=== PATIENT | female | born 1930 | race Caucasian/White ===

== ENCOUNTER 2017-10-22 09:14 | Outpatient (CLI) | payer MEDICARE, OTHER ==
[2017-10-22 17:48] LABS: BASOPHILS % (AUTO) 0.8 %; EOSINOPHILS # (AUTO) 0.1 10^3/uL (0.0-0.7); EOSINOPHILS % (AUTO) 1.6 %; HCT - HEMATOCRIT 33.4 % (37.0-47.0); HGB - HEMOGLOBIN 10.8 g/dL (12.0-16.0); LYMPHOCYTES % (AUTO) 20.4 %; MEAN CORPUSCULAR HEMOGLOBIN 30.9 pg (27.0-31.0); MEAN CORPUSCULAR HGB CONC 32.3 g/dL (32.0-36.0); MEAN CORPUSCULAR VOLUME 95.8 fL (81.0-99.0); MEAN PLATELET VOLUME 8.4 fL (7.9-10.8); MONOCYTES # (AUTO) 0.5 10^3/uL (0.0-1.0); MONOCYTES % (AUTO) 10.4 %; NEUTROPHILS # (AUTO) 3.4 10^3/uL (1.5-6.6); NEUTROPHILS % (AUTO) 66.8 %; NUCLEATED RED BLOOD CELLS AUTO 0.1 /100WBC; RED BLOOD COUNT 3.49 10^6/uL (4.20-5.40); RED CELL DISTRIBUTION WIDTH 12.7 % (12.0-15.0)
[2017-10-22 18:10] LABS: ALBUMIN/GLOBULIN RATIO 1.3 (1.0-2.2); BILIRUBIN,TOTAL 0.7 mg/dL (0.2-1.0); BUN - BLOOD UREA NITROGEN 27 mg/dL (6-20); CALCIUM 9.1 mg/dL (8.5-10.3); CARBON DIOXIDE - CO2 23 mmol/L (21-32); CHLORIDE 110 mmol/L (101-111); CHOL/HDL RATIO 3.4 (<4.4); CHOLESTEROL 186 mg/dL; CREATININE 1.3 mg/dL (0.4-1.0); GFR - MDRD 39 (>89); GLUCOSE 107 mg/dL (70-100); HDL CHOLESTEROL 54 mg/dL; LDL/HDL RATIO 1.8 (<4.4); POTASSIUM 5.2 mmol/L (3.5-5.0); SODIUM 139 mmol/L (135-145); TOTAL PROTEIN 7.4 g/dL (6.7-8.2); TRIGLYCERIDES 163 mg/dL; VLDL CHOLESTEROL 33 mg/dL
== END 2017-10-22 09:15 | disposition home or self-care (01) ==
LOC: LAB.F 09:14
PROVIDERS: ATTEND Physician Assistant Medical
DX: I10 Essential (primary) hypertension (principal); E78.5 Hyperlipidemia, unspecified
CPT/HCPCS: 36415; 80053; 80061; 85025

== ENCOUNTER 2018-01-26 14:09 | Outpatient (CLI) | payer MEDICARE, OTHER ==
[2018-01-26 17:43] LABS: ALBUMIN 4.2 g/dL (3.2-5.5); ALBUMIN/GLOBULIN RATIO 1.3 (1.0-2.2); BILIRUBIN,TOTAL 0.2 mg/dL (0.2-1.0); CREATININE 1.5 mg/dL (0.4-1.0); TOTAL PROTEIN 7.4 g/dL (6.7-8.2)
== END 2018-01-26 14:10 | disposition home or self-care (01) ==
LOC: LAB.F 14:09
PROVIDERS: ATTEND Physician Assistant Medical
DX: E87.5 Hyperkalemia (principal); N28.9 Disorder of kidney and ureter, unspecified
CPT/HCPCS: 36415; 80053

== ENCOUNTER 2018-03-31 10:47 | Outpatient (CLI) | payer MEDICARE, OTHER ==
[2018-03-31 17:51] LABS: ALBUMIN 4.5 g/dL (3.2-5.5); ALBUMIN/GLOBULIN RATIO 1.6 (1.0-2.2); BILIRUBIN,TOTAL 0.7 mg/dL (0.2-1.0); CALCIUM 8.8 mg/dL (8.5-10.3); CREATININE 1.4 mg/dL (0.4-1.0); TOTAL PROTEIN 7.4 g/dL (6.7-8.2)
== END 2018-03-31 10:48 | disposition home or self-care (01) ==
LOC: LAB.F 10:47
PROVIDERS: ATTEND Physician Assistant Medical
DX: N28.9 Disorder of kidney and ureter, unspecified (principal)
CPT/HCPCS: 36415; 80053

== ENCOUNTER 2018-04-05 10:34 | Outpatient (CLI) | payer MEDICARE, OTHER ==
[2018-04-05 18:00] LABS: ALBUMIN 4.1 g/dL (3.2-5.5); ALBUMIN/GLOBULIN RATIO 1.2 (1.0-2.2); BILIRUBIN,TOTAL 0.8 mg/dL (0.2-1.0); CALCIUM 8.9 mg/dL (8.5-10.3); CREATININE 1.3 mg/dL (0.4-1.0); TOTAL PROTEIN 7.6 g/dL (6.7-8.2)
== END 2018-04-05 10:35 | disposition home or self-care (01) ==
LOC: LAB.F 10:34
PROVIDERS: ATTEND Physician Assistant Medical
DX: E87.5 Hyperkalemia (principal)
CPT/HCPCS: 36415; 80053

== ENCOUNTER 2018-04-14 10:05 | Outpatient (CLI) | payer MEDICARE, OTHER ==
[2018-04-14 17:58] LABS: ALBUMIN 4.3 g/dL (3.2-5.5); ALBUMIN/GLOBULIN RATIO 1.4 (1.0-2.2); BILIRUBIN,TOTAL 0.7 mg/dL (0.2-1.0); CREATININE 1.3 mg/dL (0.4-1.0); TOTAL PROTEIN 7.3 g/dL (6.7-8.2)
[2018-04-14 18:04] LABS: CALCIUM 8.8 mg/dL (8.5-10.3)
== END 2018-04-14 10:06 | disposition home or self-care (01) ==
LOC: LAB.F 10:05
PROVIDERS: ATTEND Physician Assistant Medical
DX: Z86.39 Personal history of other endocrine, nutritional and metabolic disease (principal)
CPT/HCPCS: 36415; 80053

== ENCOUNTER 2018-11-15 15:00 | Outpatient (CLI) | payer MEDICARE, OTHER ==
[2018-11-15 18:55] LABS: ALBUMIN 4.1 g/dL (3.2-5.5); ALBUMIN/GLOBULIN RATIO 1.1 (1.0-2.2); BILIRUBIN,TOTAL 0.4 mg/dL (0.2-1.0); CALCIUM 8.6 mg/dL (8.5-10.3); CREATININE 1.4 mg/dL (0.4-1.0); TOTAL PROTEIN 7.7 g/dL (6.7-8.2)
== END 2018-11-15 15:01 | disposition home or self-care (01) ==
LOC: LAB.F 15:00
PROVIDERS: ATTEND Physician Assistant Medical
DX: N28.9 Disorder of kidney and ureter, unspecified (principal)
CPT/HCPCS: 36415; 80053

== ENCOUNTER 2019-04-20 08:00 | Outpatient (CLI) | payer MEDICARE, OTHER ==
[2019-04-20 10:16] LABS: BASOPHILS % (AUTO) 0.2 %; EOSINOPHILS # (AUTO) 0.1 10^3/uL (0.0-0.7); EOSINOPHILS % (AUTO) 1.1 %; LYMPHOCYTES # (AUTO) 1.5 10^3/uL (1.5-3.5); LYMPHOCYTES % (AUTO) 17.3 %; MEAN CORPUSCULAR HEMOGLOBIN 31.2 pg (27.0-31.0); MEAN CORPUSCULAR VOLUME 94.4 fL (81.0-99.0); MEAN PLATELET VOLUME 7.8 fL (7.9-10.8); MONOCYTES # (AUTO) 0.9 10^3/uL (0.0-1.0); MONOCYTES % (AUTO) 10.4 %; PLT - PLATELET COUNT 278 10^3/uL (130-450); RED BLOOD COUNT 3.52 10^6/uL (4.20-5.40); RED CELL DISTRIBUTION WIDTH 12.4 % (12.0-15.0); WHITE BLOOD COUNT 8.4 x10^3/uL (4.8-10.8)
[2019-04-20 10:24] LABS: ALBUMIN/GLOBULIN RATIO 1.3 (1.0-2.2); BILIRUBIN,TOTAL 0.7 mg/dL (0.2-1.0); CALCIUM 8.6 mg/dL (8.5-10.3); CREATININE 1.4 mg/dL (0.4-1.0); TOTAL PROTEIN 7.2 g/dL (6.7-8.2)
== END 2019-04-20 08:01 | disposition home or self-care (01) ==
LOC: LAB.F 08:00
PROVIDERS: ATTEND Physician Assistant Medical
DX: I10 Essential (primary) hypertension (principal)
CPT/HCPCS: 36415; 80053; 85025

== ENCOUNTER 2019-08-23 07:59 | Outpatient (CLI) | payer MEDICARE, OTHER ==
[2019-08-23 11:01] LABS: ALBUMIN 4.5 g/dL (3.2-5.5); ALBUMIN/GLOBULIN RATIO 1.4 (1.0-2.2); BILIRUBIN,TOTAL 0.6 mg/dL (0.2-1.0); CREATININE 1.4 mg/dL (0.4-1.0); TOTAL PROTEIN 7.8 g/dL (6.7-8.2)
== END 2019-08-23 08:00 | disposition home or self-care (01) ==
LOC: LAB.S 07:59
PROVIDERS: ATTEND Physician Assistant Medical
DX: N28.9 Disorder of kidney and ureter, unspecified (principal); Z86.39 Personal history of other endocrine, nutritional and metabolic disease
CPT/HCPCS: 36415; 80053

== ENCOUNTER 2019-10-05 07:58 | Outpatient (CLI) | payer MEDICARE, OTHER ==
[2019-10-05 16:18] LABS: ALBUMIN 4.5 g/dL (3.2-5.5); ALBUMIN/GLOBULIN RATIO 1.4 (1.0-2.2); BILIRUBIN,TOTAL 1.1 mg/dL (0.2-1.0); CREATININE 1.4 mg/dL (0.4-1.0); TOTAL PROTEIN 7.7 g/dL (6.7-8.2)
== END 2019-10-05 07:59 | disposition home or self-care (01) ==
LOC: LAB.S 07:58
PROVIDERS: ATTEND Physician Assistant Medical
DX: E87.1 Hypo-osmolality and hyponatremia (principal); E87.5 Hyperkalemia; I10 Essential (primary) hypertension
CPT/HCPCS: 36415; 80053

== ENCOUNTER 2019-11-17 08:02 | Outpatient (CLI) | payer MEDICARE, OTHER ==
[2019-11-17 11:20] LABS: HB2 TOTAL 11.6 g/dL; HEMOGLOBIN A1C 0.44 g/dL; HEMOGLOBIN A1C % 5.6 % (4.6-6.2)
[2019-11-17 11:39] LABS: ALBUMIN 4.2 g/dL (3.2-5.5); ALBUMIN/GLOBULIN RATIO 1.4 (1.0-2.2); BILIRUBIN,TOTAL 0.9 mg/dL (0.2-1.0); CALCIUM 8.8 mg/dL (8.5-10.3); CREATININE 1.3 mg/dL (0.4-1.0); TOTAL PROTEIN 7.1 g/dL (6.7-8.2)
== END 2019-11-17 08:03 | disposition home or self-care (01) ==
LOC: LAB.S 08:02
PROVIDERS: ATTEND Physician Assistant Medical
DX: Z13.31 Encounter for screening for depression (principal); Z12.11 Encounter for screening for malignant neoplasm of colon; R73.01 Impaired fasting glucose
CPT/HCPCS: 36415; 80053; 82274; 83036

== ENCOUNTER 2019-12-22 13:24 | Outpatient (CLI) | payer MEDICARE, OTHER ==
[2019-12-22 17:00] LABS: ALBUMIN/GLOBULIN RATIO 1.3 (1.0-2.2); BILIRUBIN,TOTAL 0.5 mg/dL (0.2-1.0); CALCIUM 8.7 mg/dL (8.5-10.3); CREATININE 1.4 mg/dL (0.4-1.0); TOTAL PROTEIN 7.1 g/dL (6.7-8.2)
== END 2019-12-22 13:25 | disposition home or self-care (01) ==
LOC: LAB.S 13:24
PROVIDERS: ATTEND Physician Assistant Medical
DX: E87.1 Hypo-osmolality and hyponatremia (principal); Z86.39 Personal history of other endocrine, nutritional and metabolic disease
CPT/HCPCS: 36415; 80053

== ENCOUNTER 2020-01-24 09:04 | Outpatient (CLI) | payer MEDICARE, OTHER ==
[2020-01-24 17:30] LABS: ALBUMIN 4.2 g/dL (3.2-5.5); ALBUMIN/GLOBULIN RATIO 1.3 (1.0-2.2); ALKALINE PHOSPHATASE 39 IU/L (42-121); ALT ALANINE AMINOTRANSFERASE 16 IU/L (10-60); AST ASPARTATE AMINOTRANSFERASE 22 IU/L (10-42); BILIRUBIN,TOTAL 0.8 mg/dL (0.2-1.0); BUN - BLOOD UREA NITROGEN 15 mg/dL (6-20); CALCIUM 8.6 mg/dL (8.5-10.3); CARBON DIOXIDE - CO2 26 mmol/L (21-32); CHLORIDE 99 mmol/L (101-111); CHOL/HDL RATIO 2.8 (<4.4); CHOLESTEROL 181 mg/dL; CREATININE 1.1 mg/dL (0.4-1.0); GFR - MDRD 47 (>89); GLUCOSE 103 mg/dL (70-100); HDL CHOLESTEROL 64 mg/dL; LDL CHOLESTEROL,CALCULATED 99 mg/dL; LDL/HDL RATIO 1.5 (<4.4); SODIUM 134 mmol/L (135-145); TOTAL PROTEIN 7.5 g/dL (6.7-8.2); VLDL CHOLESTEROL 18 mg/dL
== END 2020-01-24 09:05 | disposition home or self-care (01) ==
LOC: LAB.S 09:04
PROVIDERS: ATTEND Physician Assistant Medical
DX: E87.1 Hypo-osmolality and hyponatremia (principal); E78.5 Hyperlipidemia, unspecified; N28.9 Disorder of kidney and ureter, unspecified; Z86.39 Personal history of other endocrine, nutritional and metabolic disease
CPT/HCPCS: 36415; 80053; 80061; 83721

== ENCOUNTER 2020-03-09 07:00 | Outpatient (CLI) | payer MEDICARE, OTHER ==
[2020-03-09 18:08] LABS: ALBUMIN 4.1 g/dL (3.2-5.5); ALBUMIN/GLOBULIN RATIO 1.2 (1.0-2.2); BILIRUBIN,TOTAL 0.8 mg/dL (0.2-1.0); CALCIUM 8.7 mg/dL (8.5-10.3); CREATININE 1.3 mg/dL (0.4-1.0); TOTAL PROTEIN 7.6 g/dL (6.7-8.2)
== END 2020-03-09 23:59 | disposition home or self-care (01) ==
LOC: LAB.WCP 07:00
PROVIDERS: ATTEND Physician Assistant Medical
DX: Z86.39 Personal history of other endocrine, nutritional and metabolic disease (principal); N28.9 Disorder of kidney and ureter, unspecified
CPT/HCPCS: 36415; 80053

== ENCOUNTER 2020-05-05 13:42 | Emergency (ER) | payer MEDICARE, OTHER ==
[2020-05-05] MEDS ORDERED: ACETAMINOPHEN 500 MG TABLET PO STA (13:51)
--- NOTE | 2020-05-05 13:53 | ED Physician Documentation ---
PD HPI UPPER EXT INJURY - Stated complaint Stated Complaint: LT WRIST INJURY - Chief complaint Chief Complaint: Ext Problem - History obtained from History obtained from: Patient (Trip and fall in a parking lot just prior to arrival onto an outstretched left wrist. No other injuries. No headache. No blood thinners. Complains of moderate left wrist pain.) Review of Systems Constitutional: reports: Reviewed and negative Cardiac: reports: Reviewed and negative Respiratory: reports: Reviewed and negative PD PAST MEDICAL HISTORY - Present Medications Home Medications: Ambulatory Orders Medication Instructions Recorded Confirmed Fluticasone 44 Mcg [Flovent] 2 puffs INH BID 01/23/15 05/05/20 Ipratropium/Albuterol [Combivent 1 puffs IH QID PRN 01/23/15 05/05/20 Respimat] Lovastatin 40 mg PO DAILY PM 01/23/15 05/05/20 Furosemide 20 mg ORAL DAILY 05/05/20 05/05/20 Hydrocodone/Acetaminophen 1 - 2 each PO Q6H PRN #14 tablet 05/05/20 [Hydrocodon-Acetaminophen 5-325] Spironolactone 25 mg PO DAILY 05/05/20 05/05/20 - Allergies Allergies/Adverse Reactions: Allergies Allergy/AdvReac Type Severity Reaction Status Date / Time No Known Drug Allergies Allergy Verified 05/05/20 13:52 PD ED PE NORMAL - Vitals Vital signs reviewed: Yes - General General: Alert and oriented X 3, No acute distress - HEENT HEENT: PERRL, EOMI - Neck Neck: Supple, no meningeal sign, No bony TTP - Extremities Extremities: Other (Mild tenderness over the dorsal wrist on both sides, no snuffbox tenderness. Limited range of motion due to pain. No deformity. Neurovascular status normal in the fingers.) - Neuro Neuro: Alert and oriented X 3, Normal speech Results - Vitals Vitals: Vital Signs - 24 hr 05/05/20 05/05/20 13:50 14:04 Temperature 37.2 C Heart Rate 103 H 100 Respiratory 16 18 Rate Blood Pressure 201/75 H 196/78 H O2 Saturation 98 95 Oxygen O2 Source Room air - Rads (name of study) L wrist Radiology: EMP read contemporaneously Procedures - Splint (location) LUE Splint applied by: Physician Type of splint: Fiberglass, Sugar tong, Other (placed in fingertraps and some anterior pressure placed to try to reduce minimal distal radius angulation) Other: Patient tolerated well, No complications, Neurovascular intact, Good alignment, Sling provided Departure - Departure Disposition: 01 Home, Self Care Clinical Impression: Colles' fracture of left radius Qualifiers: Encounter type: initial encounter Fracture type: closed Qualified Code(s): S52.532A - Colles' fracture of left radius, initial encounter for closed fracture Condition: Good Record reviewed to determine appropriate education?: Yes Instructions: ED Fx Forearm Radius Ulna Redu Requ Follow-Up: [facility] [Provider Group] - Within 1 week Prescriptions: Hydrocodone/Acetaminophen [Hydrocodon-Acetaminophen 5-325] 1 - 2 each PO Q6H PRN #14 tablet PRN Reason: pain Comments: Keep splint on a dry, do not remove it. Call orthopedics office on Thursday to schedule appointment within 1-2 weeks.
--- NOTE | 2020-05-05 15:07 | XRAY Report ---
PROCEDURE: Wrist 3 View LT INDICATIONS: WRIST INJ TECHNIQUE: 3 views of the wrist were acquired. COMPARISON: None FINDINGS: Bones: Acute impacted distal radial fracture is seen with dorsal angulation and displacement at fract ure site. Fracture of ulnar styloid base is also seen with no significant displacement. Osteoarthriti c changes are noted throughout wrist joints more prominent at first CMC joint. No suspicious bony les ions. Scaphoid view: Scaphoid is grossly intact. Soft tissues: No suspicious soft tissue calcifications. IMPRESSION: Acute impacted distal radial fracture as above. Nondisplaced ulnar styloid base fracture. Wrist joint osteoarthritis. Reviewed by: Mika Adames MD on 05/05/2020 3:06 PM PDT Approved by: Mika Adames MD on 05/05/2020 3:06 PM PDT Station ID: [id number]
[2020-05-05 15:29] VITALS: BP 216/93
== END 2020-05-05 15:29 | disposition home or self-care (01) ==
LOC: ED 13:42
DX: S52.532A Colles' fracture of left radius, initial encounter for closed fracture (principal); M19.032 Primary osteoarthritis, left wrist; W01.0XXA Fall on same level from slipping, tripping and stumbling without subsequent striking against object, initial encounter; Y92.481 Parking lot as the place of occurrence of the external cause
CPT/HCPCS: 29105; 73110; 99283; 99284; A9270

== ENCOUNTER 2020-12-10 08:00 | Outpatient (CLI) | payer MEDICARE, OTHER ==
[2020-12-10 15:16] LABS: HGB - HEMOGLOBIN 12.5 g/dL (12.0-16.0); MEAN CORPUSCULAR HEMOGLOBIN 31.8 pg (27.0-31.0); MEAN CORPUSCULAR HGB CONC 32.7 g/dL (32.0-36.0); MEAN CORPUSCULAR VOLUME 97.2 fL (81.0-99.0); MEAN PLATELET VOLUME 9.8 fL (7.9-10.8); RED BLOOD COUNT 3.93 10^6/uL (4.20-5.40); RED CELL DISTRIBUTION WIDTH 11.9 % (12.0-15.0); WHITE BLOOD COUNT 6.5 x10^3/uL (4.8-10.8)
[2020-12-10 15:41] LABS: CALCIUM 9.1 mg/dL (8.5-10.3); CREATININE 1.5 mg/dL (0.4-1.0)
== END 2020-12-10 23:59 | disposition home or self-care (01) ==
LOC: LAB.S 08:00
PROVIDERS: ATTEND Physician Assistant Medical
DX: R06.02 Shortness of breath (principal)
CPT/HCPCS: 36415; 80048; 83880; 85027

== ENCOUNTER 2020-12-10 09:29 | Outpatient (CLI) | payer MEDICARE, OTHER ==
--- NOTE | 2020-12-10 10:00 | XRAY Report ---
PROCEDURE: Chest 2 View X-Ray INDICATIONS: SHORTNESS OF BREATH TECHNIQUE: 2 views of the chest. COMPARISON: None. FINDINGS: Surgical changes and devices: None. Lungs and pleura: No pleural effusions or pneumothorax. Lungs are clear. Mediastinum: Mediastinal contours are normal. Heart size is normal. Moderate aortic atheroscleroti c calcifications are present. Bones and chest wall: No suspicious bony abnormalities. Soft tissues appear unremarkable. Mild cor tical irregularity seen at the anterolateral right sixth and seventh ribs, most likely related to chr onic prior fractures. IMPRESSION: 1. No acute cardiopulmonary abnormality. 2. Age-indeterminate fracture deformities of the anterolateral right sixth and seventh ribs. Reviewed by: Parrish Abel MD on 12/10/2020 9:59 AM PST Approved by: Parrish Abel MD on 12/10/2020 9:59 AM [facility] Station ID: [id number]
== END 2020-12-10 23:59 | disposition home or self-care (01) ==
LOC: DI.S 09:29
PROVIDERS: ATTEND Physician Assistant Medical
DX: R06.02 Shortness of breath (principal); S22.41XA Multiple fractures of ribs, right side, initial encounter for closed fracture

== ENCOUNTER 2020-12-11 10:19 | Outpatient (CLI) | payer MEDICARE, OTHER ==
--- NOTE | 2020-12-11 11:45 | Ultrasound Report ---
PROCEDURE: Duplex Ext Veins Left INDICATIONS: PAIN IN LLE, SOB TECHNIQUE: Real-time imaging, as well as color and pulse Doppler interrogation, were performed of the left lower extremity deep veins from the inguinal ligament to the popliteal fossa. COMPARISON: None. FINDINGS: The deep veins are normally compressible, and free of intraluminal thrombus. Color and pu lse Doppler demonstrate normal phasic intraluminal flow. There is normal augmentation response to di stal compression maneuver. IMPRESSION: No evidence of deep vein thrombosis involving the left lower extremity. Reviewed by: Lora Miller MD, PhD on 12/11/2020 10:43 AM [facility] Approved by: Lora Miller MD, PhD on 12/11/2020 10:43 AM [facility] Station ID: [id number]
== END 2020-12-11 10:20 | disposition home or self-care (01) ==
LOC: DI 10:19
PROVIDERS: ATTEND Physician Assistant Medical
DX: M79.662 Pain in left lower leg (principal); R06.02 Shortness of breath

== ENCOUNTER 2021-05-21 09:59 | Outpatient (CLI) | payer MEDICARE, OTHER ==
[2021-05-21 17:14] LABS: BASOPHILS % (AUTO) 0.3 %; EOSINOPHILS # (AUTO) 0.1 10^3/uL (0.0-0.7); HCT - HEMATOCRIT 29.4 % (37.0-47.0); HGB - HEMOGLOBIN 9.5 g/dL (12.0-16.0); LYMPHOCYTES # (AUTO) 0.9 10^3/uL (1.5-3.5); LYMPHOCYTES % (AUTO) 15.1 %; MEAN CORPUSCULAR HEMOGLOBIN 32.1 pg (27.0-31.0); MEAN CORPUSCULAR HGB CONC 32.3 g/dL (32.0-36.0); MEAN CORPUSCULAR VOLUME 99.3 fL (81.0-99.0); MONOCYTES # (AUTO) 0.7 10^3/uL (0.0-1.0); MONOCYTES % (AUTO) 11.1 %; NEUTROPHILS # (AUTO) 4.4 10^3/uL (1.5-6.6); NEUTROPHILS % (AUTO) 72.2 %; PLT - PLATELET COUNT 247 10^3/uL (130-450); RED BLOOD COUNT 2.96 10^6/uL (4.20-5.40); RED CELL DISTRIBUTION WIDTH 12.6 % (12.0-15.0); WHITE BLOOD COUNT 6.1 x10^3/uL (4.8-10.8)
[2021-05-21 17:28] LABS: ALBUMIN 4.1 g/dL (3.2-5.5); ALBUMIN/GLOBULIN RATIO 1.5 (1.0-2.2); BILIRUBIN,TOTAL 0.9 mg/dL (0.2-1.0); CALCIUM 8.7 mg/dL (8.5-10.3); CREATININE 1.8 mg/dL (0.4-1.0); POTASSIUM 5.5 mmol/L (3.5-5.0); TOTAL PROTEIN 6.9 g/dL (6.7-8.2)
== END 2021-05-21 10:00 | disposition home or self-care (01) ==
LOC: LAB.S 09:59
PROVIDERS: ATTEND Internal Medicine
DX: I10 Essential (primary) hypertension (principal); R60.9 Edema, unspecified
CPT/HCPCS: 36415; 80053; 83880; 85025

== ENCOUNTER 2021-05-24 08:00 | Outpatient (CLI) | payer MEDICARE, OTHER ==
[2021-05-24 17:02] LABS: FECAL OCCULT BLOOD (FIT) NEGATIVE (NEGATIVE)
== END 2021-05-24 23:59 | disposition home or self-care (01) ==
LOC: LAB.S 08:00
PROVIDERS: ATTEND Internal Medicine
DX: Z12.11 Encounter for screening for malignant neoplasm of colon (principal)
CPT/HCPCS: 82274

== ENCOUNTER 2021-06-18 08:52 | Outpatient (CLI) | payer MEDICARE, OTHER ==
[2021-06-18 14:58] LABS: BASOPHILS % (AUTO) 0.5 %; EOSINOPHILS # (AUTO) 0.1 10^3/uL (0.0-0.7); EOSINOPHILS % (AUTO) 2.1 %; HCT - HEMATOCRIT 30.3 % (37.0-47.0); HGB - HEMOGLOBIN 9.4 g/dL (12.0-16.0); LYMPHOCYTES # (AUTO) 1.1 10^3/uL (1.5-3.5); LYMPHOCYTES % (AUTO) 18.7 %; MEAN CORPUSCULAR VOLUME 103.1 fL (81.0-99.0); MEAN PLATELET VOLUME 9.6 fL (7.9-10.8); MONOCYTES # (AUTO) 0.6 10^3/uL (0.0-1.0); NEUTROPHILS # (AUTO) 3.8 10^3/uL (1.5-6.6); NEUTROPHILS % (AUTO) 67.3 %; PLT - PLATELET COUNT 240 10^3/uL (130-450); RED BLOOD COUNT 2.94 10^6/uL (4.20-5.40); RED CELL DISTRIBUTION WIDTH 12.2 % (12.0-15.0); WHITE BLOOD COUNT 5.7 x10^3/uL (4.8-10.8)
[2021-06-18 15:03] LABS: BILIRUBIN,URINE NEGATIVE (NEGATIVE); GLUCOSE, URINE (UA) NEGATIVE (NEGATIVE); KETONES,URINE (UA) NEGATIVE (NEGATIVE); LEUKOCYTE ESTERASE, URINE MODERATE (NEGATIVE); NITRITE,URINE NEGATIVE (NEGATIVE); OCCULT BLOOD,URINE NEGATIVE (NEGATIVE); PROTEIN,URINE NEGATIVE (NEGATIVE); UROBILINOGEN,URINE 0.2 (NORMAL) E.U./dL (NORMAL)
[2021-06-18 15:16] LABS: CLARITY,URINE CLEAR (CLEAR); RBC,URINE 0-5 /HPF (0-5); SQUAMOUS EPITHELIAL CELL,UR RARE Squamous (<= Few); WBC CLUMPS,URINE PRESENT
[2021-06-18 15:17] LABS: BACTERIA,URINE Few /HPF (None Seen); EPITHELIAL CELLS,UR RARE Transitional /HPF (<= Few)
[2021-06-18 15:45] LABS: ALBUMIN 4.2 g/dL (3.2-5.5); ALBUMIN/GLOBULIN RATIO 1.3 (1.0-2.2); BILIRUBIN,TOTAL 0.7 mg/dL (0.2-1.0); CALCIUM 9.2 mg/dL (8.5-10.3); CREATININE 1.8 mg/dL (0.4-1.0); POTASSIUM 4.9 mmol/L (3.5-5.0); TOTAL PROTEIN 7.4 g/dL (6.7-8.2)
== END 2021-06-18 08:53 | disposition home or self-care (01) ==
LOC: LAB.S 08:52
PROVIDERS: ATTEND Internal Medicine
DX: N18.9 Chronic kidney disease, unspecified (principal); D64.9 Anemia, unspecified
CPT/HCPCS: 36415; 80053; 81001; 82728; 83540; 84466; 85025